=== PATIENT | male | born 1995 | race Caucasian/White ===

== ENCOUNTER 2020-11-30 20:48 | Emergency (ER) | payer OTHER ==
[~2020-11-30] VITALS: Ht 185.4 cm; Wt 73.1 kg
--- OUTSIDE RECORDS SUMMARY | 2020-11-30 21:48 | XMS ---
PreManage Notification: IRIS ANTHONY [employer] Worker Events No recent Security Events currently on file CRITERIA MET - [facility] CARE PROVIDERS MATTHEW Conde [facility] 01/30/2020-Current PHONE: [phone] CENTER-[facility]/Center: [facility] Current [facility] ([facility]) [facility] PHONE: [phone] HITESH CISNEROS Internal Medicine Current PHONE: [phone] Valentina has no Care Guidelines for this patient. E.Beth. VISIT COUNT (12 MO.) 1 [facility] [address] [place] [address] [place] [address] MANDY Bergeron TOTAL 4 NOTE: Visits indicate total known visits. ED/UCC VISIT TRACKING (12 MO.) 11/30/2020 20:50 [facility] TYPE: Emergency COMPLAINT: - PELVIS AND TAILBONE PAIN 08/06/2020 16:00 [facility] TYPE: Emergency DIAGNOSES: - Pilonidal cyst without abscess 08/04/2020 13:08 [facility] TYPE: Emergency DIAGNOSES: 37499. lower back pain 96657. Low [facility] DIAGNOSES: 54946. BOTH ARMS NUMBNESS AND BACK PAIN 76699. BOTH ARMS NUMBNESS AND UPPER BACK PAIN 42883. Strain of muscle, fascia and tendon at neck level, initial encounter INPATIENT VISIT TRACKING (12 MO.) No inpatient visits to display in this time frame [email or web address]
[2020-12-01] MEDS ORDERED: HYDROCODON-ACE1 EA10 PO (00:01)
== END 2020-12-01 00:24 | disposition home or self-care (01) ==
LOC: ED 20:48
DX: K63.89 Other specified diseases of intestine (principal); Z88.5 Allergy status to narcotic agent
CPT/HCPCS: 74176; 80053; 81001; 83690; 85025; 99284-25